=== PATIENT | female | born 1990 | race Caucasian/White ===

== ENCOUNTER 2017-09-04 19:21 | Emergency (ER) | payer OTHER ==
[~2017-09-04] VITALS: Ht 162.6 cm; Wt 74.8 kg
[~2017-09-04 19:21] MED LIST: PRENATAL CAPLE1 EACH PO; VALTREX1000 MG PO
== END 2017-09-05 00:20 | disposition home or self-care (01) ==
LOC: ER 19:21
DX: R10.2 Pelvic and perineal pain (principal)

== ENCOUNTER 2018-04-04 18:18 | Emergency (ER) | payer OTHER ==
[~2018-04-04] VITALS: Ht 162.6 cm; Wt 74.8 kg
[2018-04-04] MEDS ORDERED: KETO10TA2 PO (21:04)
== END 2018-04-04 21:17 | disposition home or self-care (01) ==
LOC: ER 18:18
DX: S83.8X1A Sprain of other specified parts of right knee, initial encounter (principal); W01.198A Fall on same level from slipping, tripping and stumbling with subsequent striking against other object, initial encounter; Y93.89 Activity, other specified; Y92.018 Other place in single-family (private) house as the place of occurrence of the external cause; Y99.8 Other external cause status

== ENCOUNTER 2018-06-13 12:15 | Emergency (ER) | payer OTHER ==
[~2018-06-13] VITALS: Ht 162.6 cm; Wt 74.8 kg
[~2018-06-13 12:15] MED LIST changes: +KETO10TA2 PO
== END 2018-06-13 21:24 | disposition home or self-care (01) ==
LOC: ER 12:15
DX: R00.2 Palpitations (principal); F06.4 Anxiety disorder due to known physiological condition

== ENCOUNTER 2019-03-24 14:23 | Emergency (ER) | payer OTHER ==
[~2019-03-24] VITALS: Ht 162.6 cm; Wt 70.3 kg
[2019-03-24] MEDS ORDERED: DICLOFENAC SODI50 MG PO (18:35)
[2019-03-24] MEDS ORDERED: CYCLOBENZAPRINE10 MG PO (18:35)
[2019-03-24] MEDS ORDERED: ORPHENADRINE C100 MG PO (18:35)
== END 2019-03-24 18:42 | disposition home or self-care (01) ==
LOC: ER 14:23
DX: M62.838 Other muscle spasm (principal); R20.0 Anesthesia of skin; R51 Headache